=== PATIENT | female | born 1985 | race Two or more races ===

== ENCOUNTER 2024-08-26 23:37 | Emergency (ER) | payer OTHER ==
[~2024-08-26] VITALS: Ht 152.4 cm; Wt 70.6 kg
[2024-08-26 23:59] VITALS: BP 120/83; PULSE 80; RESP 24; TEMP 98.5; O2SAT 100
[2024-08-27] MEDS ORDERED: CYCL-837 PO (00:05)
--- NOTE | 2024-08-27 00:05 | ED.PDOC ---
Back pain HPI HPI Comments 38-YEAR-OLD FEMALE COMPLAINING OF INTERMITTENT HEADACHE FOR THE LAST 2-3 WEEKS. PATIENT REPORTS PAIN IS ON THE LEFT SIDE OF HER HEAD AND NECK, RADIATES DOWN HER LEFT ARM. NOTHING MAKES IT BETTER, MOVEMENT MAKES IT WORSE. PATIENT STATES PAIN IS MILD TODAY BUT SHE WAS CONCERNED BECAUSE SHE FELT NUMBNESS IN HER LEFT ARM AND ON THE LEFT SIDE OF HER FACE. Time Seen by MD: 23:52 Reviewed Notes: Nurses Notes Information Source: Patient Constitutional: denies: chills, diaphoresis, fatigue, fever, malaise, sweats, weakness, others EENTM: denies: blurred vision, double vision, ear bleeding, ear discharge, ear drainage, ear pain, ear ringing, eye pain, eye redness, hearing loss, mouth pain, mouth swelling, nasal discharge, nose bleeding, nose congestion, nose pain, photophobia, tearing, throat pain, throat swelling, voice changes, others Respiratory: denies: cough, hemoptysis, orthopnea, SOB at rest, shortness of breath, SOB with excertion, stridor, wheezing, others Cardiovascular: denies: chest pain, dizzy spells, diaphoresis, Dyspnea on exertion, edema, irregular heart beat, left arm pain, lightheadedness, palpitations, PND, syncope, others Gastrointestinal: denies: abdomen distended, abdominal pain, blood streaked bowels, constipated, diarrhea, dysphagia, difficulty swallowing, hematemesis, melena, nausea, poor appetite, poor fluid intake, rectal bleeding, rectal pain, vomiting, others Genitourinary: denies: abnormal vagina bleeding, burning, dyspareunia, dysuria, flank pain, frequency, hematuria, incontinence, pain, , vagina discharge, urgency, others Neurological: denies: dizziness, fainting, headache, left sided numbness, left sided weakness, numbness, paresthesia, pre-existing deficit, right sided numbness, right sided weakness, seizure, speech problems, tingling, tremors, weakness, others Musculoskeletal: denies: back pain, gout, joint pain, joint swelling, muscle pain, muscle stiffness, neck pain, others Integumetry: denies: bruises, change in color, change in hair/nails, dryness, laceration, lesions, lumps, rash, wounds, others Allergic/Immunocompromised: denies: Difficulty Healing, Frequent Infections, Hives, Itching, others Hematologic/Lymphatic: denies: anemia, blood clots, easy bleeding, easy bruising, swollen glands, others Endocrine: denies: excessive hunger, excessive sweating, excessive thirst, excessive urination, flushing, intolerance to cold, intolerance to heat, unexplained weight gain, unexplained weight loss, others Physical Exam General Appearance: No Apparent Distress, Normal HEENT: Normal ENT Inspection, Pharynx Normal, TMs Normal Neck: Full Range of Motion, Non-Tender, Normal, Normal Inspection Respiratory: Chest Non-Tender, Lungs Clear, No Accessory Muscle Use, No Respiratory Distress, Normal Breath Sounds Cardiovascular: No Edema, No JVD, No Murmur, No Gallop, Normal Peripheral Pulses, Regular Rate/Rhythm Breast Exam: Deferred Gastrointestinal: No Organomegaly, Non Tender, No Pulsatile Mass, Normal Bowel Sounds, Soft Genitalia: Deferred Pelvic: Deferred Rectal: Deferred Extremities: No calf tenderness, Normal capillary refill, Normal inspection, Normal range of motion, Non-tender, No pedal edema Musculoskeletal : Location: Left Extremity Location: Other (LEFT-SIDED TRAPEZIUS MUSCLE TENDER TO PALPATION) Apperance: Normal Neurologic: Alert, escalator attendant II-XII nml as Tested, No Motor Deficits, Normal Affect, Normal Mood, No Sensory Deficits Cerebellar Function: Normal Reflexes: Normal Skin: Dry, Normal Color, Warm Lymphatic: No Adenopathy Was a procedure done? Was a procedure done?: No Back Pain Differential Dx Differential Diagnosis: Other (TENSION HEADACHE, CLUSTER HEADACHE) X-Ray, Labs, Meds, VS Comment IMAGING: X-RAYS AND CT SCANS WERE REVIEWED AND INTERPRETED BY THIS PROVIDER, IMAGING SHOWS NO FRACTURES AND NO PATHOLOGICAL DISEASE. PENDING RADIOLOGY REVIEW. LABORATORY: LABS REVIEWED AND INTERPRETED BY THIS PROVIDER. NO SIGNIFICANT ABNORMALITIES NOTED. PATIENT HAS PRIOR MEDICAL VISITS REVIEWED. MED RECONCILIATION PERFORMED VITAL SIGNS REVIEWED Time of 1ST Reevaluation: 00:05 Reevaluation 1ST: Improved Patient Education/Counseling: Diagnosis, Treatment, Need For Follow Up (FOLLOW UP WITH THE PCP IN THE NEXT 2-4 DAYS.) Family Education/Counseling: Diagnosis Departure 1 Departure Time of Disposition: 00:04 Impression: Primary Impression: Torticollis Disposition: 01 HOME / SELF CARE / HOMELESS Condition: Fair e-Prescriptions Cyclobenzaprine Hcl (Cyclobenzaprine Hcl) 5 Mg Tab 1 TAB PO TID PRN, #30 TAB Prov: EMILIO VIVAS 08/27/24 Discharged With: Self Critical Care Note Critical Care Time?: No Stability Stability form required: No Heart Score Heart Score: Heart Score Response (Comments) Value History N/A 0 EKG N/A 0 Age N/A 0 Risk Factors N/A 0 Troponin N/A 0 Total 0 EMILIO VIVAS Aug 27, 2024 00:05
== END 2024-08-27 00:09 | disposition home or self-care (01) ==
LOC: ER 23:37
DX: M43.6 Torticollis (principal); Z79.899 Other long term (current) drug therapy
CPT/HCPCS: 82947; 82962

== ENCOUNTER 2024-11-27 12:59 | Emergency (ER) | payer OTHER ==
[~2024-11-27] VITALS: Ht 152.4 cm; Wt 70.6 kg
[~2024-11-27 12:59] MED LIST: CYCL-837 PO
--- NOTE | 2024-11-27 13:25 | ED.PDOC ---
History of Present Illness HPI Comments A 39 YEAR OLD FEMALE PRESENTS TO THE ED WITH COMPLAINT OF HIGH BLOOD PRESSURE AND HEADACHE. PATIENT STATES SHE HAS BEEN EXPERIENCING HIGH BLOOD PRESSURE OFF AND ON FOR THE PAST 2 MONTHS AND NOTICES WAS HIGH AGAIN TODAY. PATIENT REPORTS SHE BEGAN EXPERIENCE A HEADACHE AND LIGHTHEADEDNESS DUE TO HER HIGH BLOOD PRESSURE. PATIENT NOTES THAT SHE WAS DIAGNOSED BY HER PRIMARY CARE PHYSICIAN WITH HYPERTENSION, BUT DECLINED TO TAKE MEDICATION AT THIS TIME SHE OPTED FOR AT-HOME MANAGEMENT OF HER BLOOD PRESSURE INSTEAD OF MEDICATION. PATIENT DENIES HAS NOT CHANGES, SLURRED SPEECH, ONE-SIDED WEAKNESS, FACIAL DROOP, FEVER, CHILLS, SHORTNESS OF BREATH, CHEST PAIN, ABDOMINAL PAIN, NAUSEA, VOMITING, OR OTHER COMPLAINTS. NO OTHER SYMPTOMS OR MODIFYING FACTORS AT THIS TIME. PATIENT IS ALERT, ORIENTED X 4, AND HAS STEADY GAIT. Chief Complaint: High Blood Pressure Time Seen by MD: 13:06 Reviewed Notes: Nurses Notes, Medications, Allergies Allergies: Coded Allergies: Amoxicillin (Verified Allergy, Unknown, 08/27/24) Cephalexin (Verified Allergy, Unknown, 11/27/24) Ciprofloxacin (Verified Allergy, Unknown, 11/27/24) Penicillins (Verified Allergy, Unknown, 11/27/24) Home Meds Active Scripts Cyclobenzaprine Hcl (Cyclobenzaprine Hcl) 5 Mg Tab, 1 TAB PO TID PRN, #30 TAB Prov:EMILIO VIVAS 08/27/24 Information Source: Patient Mode of Arrival: Ambulatory Severity: Moderate Timing: Days Duration: Since onset, Days Prehospital treatment: None Medication Refill: For: Other (HIGH BLOOD PRESSURE AND HEADACHE) Past Medical History PAST MEDICAL HISTORY: HTN Surgical History: Denies all surgeries SILK TRIMMER History: Denies all SILK TRIMMER Hx, No Pertinent SILK TRIMMER History Family History Family History: Reviewed,noncontributory to illness Social History Smoker: Non-Smoker Alcohol: Denies ETOH Use Drugs: Denies Drug Use Lives In: Home Constitutional: denies: chills, diaphoresis, fatigue, fever, malaise, sweats, weakness, others EENTM: denies: blurred vision, double vision, ear bleeding, ear discharge, ear drainage, ear pain, ear ringing, eye pain, eye redness, hearing loss, mouth pain, mouth swelling, nasal discharge, nose bleeding, nose congestion, nose pain, photophobia, tearing, throat pain, throat swelling, voice changes, others Respiratory: denies: cough, hemoptysis, orthopnea, SOB at rest, shortness of breath, SOB with excertion, stridor, wheezing, others Cardiovascular: reports: others (HYPERTENSION); denies: chest pain, dizzy spells, diaphoresis, Dyspnea on exertion, edema, irregular heart beat, left arm pain, lightheadedness, palpitations, PND, syncope Gastrointestinal: denies: abdomen distended, abdominal pain, blood streaked bowels, constipated, diarrhea, dysphagia, difficulty swallowing, hematemesis, melena, nausea, poor appetite, poor fluid intake, rectal bleeding, rectal pain, vomiting, others Genitourinary: denies: abnormal vagina bleeding, burning, dyspareunia, dysuria, flank pain, frequency, hematuria, incontinence, pain, , vagina discharge, urgency, others Neurological: reports: dizziness, headache; denies: fainting, left sided numbness, left sided weakness, numbness, paresthesia, pre-existing deficit, right sided numbness, right sided weakness, seizure, speech problems, tingling, tremors, weakness, others Musculoskeletal: denies: back pain, gout, joint pain, joint swelling, muscle pain, muscle stiffness, neck pain, others Integumetry: denies: bruises, change in color, change in hair/nails, dryness, laceration, lesions, lumps, rash, wounds, others Allergic/Immunocompromised: denies: Difficulty Healing, Frequent Infections, Hives, Itching, others Hematologic/Lymphatic: denies: anemia, blood clots, easy bleeding, easy bruising, swollen glands, others Endocrine: denies: excessive hunger, excessive sweating, excessive thirst, excessive urination, flushing, intolerance to cold, intolerance to heat, unexplained weight gain, unexplained weight loss, others Psychiatric: reports: anxiety; denies: bipolar disorder, depression, hopeless, panic disorder, schizophrenia, sleepless, suicidal, others All Other Systems: Reviewed and Negative Physical Exam General Appearance: No Apparent Distress, Normal, Other (ANXIOUS ) HEENT: Normal ENT Inspection, PERRL/EOMI, Pharynx Normal, TMs Normal Neck: Full Range of Motion, Non-Tender, Normal, Normal Inspection Respiratory: Chest Non-Tender, Lungs Clear, No Accessory Muscle Use, No Respiratory Distress, Normal Breath Sounds Cardiovascular: No Edema, No JVD, No Murmur, No Gallop, Normal Peripheral Pulses, Regular Rate/Rhythm Breast Exam: Deferred Gastrointestinal: No Organomegaly, Non Tender, No Pulsatile Mass, Normal Bowel Sounds, Soft Genitalia: Deferred Pelvic: Deferred Rectal: Deferred Extremities: No calf tenderness, Normal capillary refill, Normal inspection, Normal range of motion, Non-tender, No pedal edema Musculoskeletal : Apperance: Normal Neurologic: Alert, air hammer operator II-XII nml as Tested, No Motor Deficits, Normal Affect, Normal Mood, No Sensory Deficits Cerebellar Function: Normal Reflexes: Normal Skin: Dry, Normal Color, Warm Lymphatic: No Adenopathy Was a procedure done? Was a procedure done?: No Differential Dx Considerations may include: HYPERTENSION, UNCONTROLLED HYPERTENSION, WELL CHECK TENSION HEADACHE, MIGRAINE HEADACHE, BRAIN MASS, BRAIN BLEED, ANXIETY REACTION, HYPERVENTILATION SYNDROME, UTI, ACUTE CYSTITIS, DEHYDRATION, ELECTROLYTE IMBALANCE, HYPOMAGNESEMIA X-Ray, Labs, Meds, VS Vital Signs Date Time Temp Pulse Resp B/P (MAP) Pulse Ox O2 Delivery O2 Flow Rate FiO2 11/27/24 14:41 99 Room Air* 0 21 11/27/24 14:37 98.1 82 17 120/75 (90) 97 98.1 11/27/24 13:01 98.2 94 16 134/77 98 98.2 Lab Test 11/27/24 13:35 11/27/24 13:31 Range/Units White Blood Count 6.4 4.4-10.8 10^3/uL Red Blood Count 4.98 4.0-5.20 10^6/uL Hemoglobin 15.5 12.2-16.2 g/dL Hematocrit 45.6 36.0-46.0 % Mean Corpuscular Volume 91.6 80.0-100.0 fL Mean Corpuscular Hemoglobin 31.2 28.0-32.0 pg Mean Corpuscular Hemoglobin Concent 34.0 32.0-36.0 g/dL Red Cell Distribution Width 12.6 11.8-14.3 % Platelet Count 250 140-450 10^3/uL Mean Platelet Volume 8.2 6.9-10.8 fL Neutrophils (%) (Auto) 65.0 37.0-80.0 % Lymphocytes (%) (Auto) 25.8 10.0-50.0 % Monocytes (%) (Auto) 7.6 0.0-12.0 % Eosinophils (%) (Auto) 0.9 0.0-7.0 % Basophils (%) (Auto) 0.7 0.0-2.0 % Neutrophils # (Auto) 4.2 1.6-8.6 10 ^3/uL Lymphocytes # (Auto) 1.7 0.4-5.4 10 ^3/uL Monocytes # (Auto) 0.5 0-1.3 10 ^3/uL Eosinophils # (Auto) 0.1 0-0.8 10 ^3/uL Basophils # (Auto) 0 0-0.2 10 ^3/uL Nucleated Red Blood Cells 0.0 % Sodium Level 139 136-145 mmol/L Potassium Level 4.3 3.5-5.1 mmol/L Chloride Level 105 98-107 mmol/L Carbon Dioxide Level 25 20-31 mmol/L Anion Gap 9 5-15 Blood Urea Nitrogen 14 9-23 mg/dL Creatinine 0.87 0.550-1.02 mg/dL Glomerular Filtration Rate Calc 87 >90 mL/min BUN/Creatinine Ratio 16.1 10.0-20.0 Serum Glucose 97 74-106 mg/dL Calcium Level 9.5 8.7-10.4 mg/dL Magnesium Level 2.1 1.6-2.6 mg/dL Troponin I High Sensitivity 3 L </=34 ng/L Urine Color Colorless Yellow Urine Clarity Clear Clear Urine pH 7.0 5.0-9.0 Urine Specific [place] 1.002 1.001-1.035 Urine Protein Trace H Negative Urine Ketones Negative Negative Urine Blood 3+ H Negative /uL Urine Nitrite Negative Negative Urine Bilirubin Negative Negative Urine Urobilinogen Normal Negative mg/dL Urine Leukocyte Esterase Trace Negative /uL Urine RBC 2 0 - 4 /hpf Urine Microscopic WBC 1 0-5 /HPF Urine Squamous Epithelial Cells Few <5 /hpf Urine Bacteria Few H None Seen /hpf Urine Glucose Normal Normal mg/dL CLINICAL HISTORY: HTN AND HEADACHE TECHNIQUE: Helical scanning was performed of the head from the skull base to the vertex. Multiplanar reconstructions were performed. This exam was performed according to our departmental dose optimization program. Up-to-date CT equipment and radiation dose reduction techniques are utilized as appropriate. CTDI 52.9 DLP 829 COMPARISON: None FINDINGS: There is no evidence for acute intracranial hemorrhage, acute ischemic changes, mass, mass effect, or extra-axial fluid collection. There is no hydrocephalus or midline shift. There is no effacement of the cerebral sulci and basal subarachnoid cisterns. The burrell-white matter differentiation is well maintained. The imaged paranasal sinuses are clear. IMPRESSION: NO ACUTE INTRACRANIAL ABNORMALITY SEEN. ATED BY: CHELSY MANJARREZ MD DICTATED DATE/TIME: 11/27/24 134 SIGNED BY: CHELSY MANJARREZ MD SIGNED DATE/TIME: 11/27/24 134 CC: X-Ray, Labs, Meds, VS Comment EXTERNAL MEDICAL RECORDS REVIEWED: [NONE] INDEPENDENT HISTORIANS: [NONE] SOCIAL DETERMINANTS OF HEALTH: [NONE] LABS ORDERED: CBC, BMP, UA, MAGNESIUM, TROPONIN REVIEWED AND INTERPRETED RESULTS: BLOOD 3+ IMAGING ORDERED: CT BRAIN TREATMENTS ORDERED: NONE PROCEDURES PERFORMED: NONE CRITICAL CARE TIME: NONE I HAVE DISCUSSED THE PATIENT WITH THE ATTENDING PHYSICIAN DR. CASEY AND HE AGREES WITH THE PATIENT'S PLAN OF CARE AND DISPOSITION. BASED ON HISTORY OF PRESENT ILLNESS, AND PHYSICAL EXAM, PATIENT WILL BE DISCHARGED HOME. SHARED DECISION MAKING: DISCUSSED WITH PATIENT THAT THEIR WORKUP WAS NORMAL. PATIENT INSTRUCTED TO FOLLOW UP WITH PRIMARY CARE PROVIDER IN 1-2 DAYS FOR RE- EVALUATION OF SYMPTOMS. PATIENT VERBALIZES UNDERSTANDING TO RETURN TO ED FOR NEW OR WORSENING SYMPTOMS OR IF FOLLOW UP WITH PCP CANNOT BE OBTAINED. PATIENT FEELS COMFORTABLE GOING HOME AT THIS TIME. ALL QUESTIONS ADDRESSED AT TIME OF DISCHARGE Images Reviewed?: Images reviewed and evaluated by me Time of 1ST Reevaluation: 14:43 Reevaluation 1ST: Improved Patient Education/Counseling: Diagnosis, Treatment, Need For Follow Up Family Education/Counseling: Diagnosis, Treatment, Need For Follow Up Medical Screening: No EMC Exist At This Time SEPSIS Sepsis Screen Date sepsis recognized/suspect: Nov 27, 2024 Time Sepsis recognized/suspect: 1306 Recent Procedure: No On Antibiotic Therapy: No Respiratory Rate >20: No Heart Rate >90: No Temp<36 C (96.8 F) or >38.3 C: No SBP <90 or MAP <65 mmHG: No New Acute Mental Status Change: No Is the patient on CPAP, BIPAP,: No Physician Orders Head Without Contrast (11/27/24 13:19) Vital Signs Date Time Temp Pulse Resp B/P (MAP) Pulse Ox O2 Delivery O2 Flow Rate FiO2 11/27/24 14:41 99 Room Air* 0 21 11/27/24 14:37 98.1 82 17 120/75 (90) 97 98.1 11/27/24 13:01 98.2 94 16 134/77 98 98.2 Laboratory Tests Test 11/27/24 13:35 White Blood Count 6.4 10^3/uL (4.4-10.8) Departure 1 Departure Time of Disposition: 14:43 Impression: Primary Impression: Tension headache Additional Impression: History of hypertension Disposition: 01 HOME / SELF CARE / HOMELESS Condition: Stable Additional Instructions: FOLLOW-UP WITH PCP IN 1 TO 2 DAYS. TAKE MEDICATIONS PRESCRIBED. RETURN TO ED FOR ANY NEW OR WORSENING SYMPTOMS. Discharged With: Self Critical Care Note Critical Care Time?: No Stability Stability form required: No I personally scribed for RANDY LEIVA ([email or web address]) on 11/27/24 at 13:25. Elec tronically submitted by Edmundo Cai ([facility]). I personally scribed for RANDY LEIVA ([email or web address]) on 11/27/24 at 13:51. Elect ronically submitted by Edmundo Cai ([employer]). I personally scribed for RANDY LEIVA ([email or web address]) on 11/27/24 at 14:24. Electr onically submitted by Edmundo Cai ([employer]). RANDY LEIVA Nov 27, 2024 13:25
--- NOTE | 2024-11-27 13:47 | DVH ---
CLINICAL HISTORY: HTN AND HEADACHE TECHNIQUE: Helical scanning was performed of the head from the skull base to the vertex. Multiplanar reconstructions were performed. This exam was performed according to our departmental dose optimizat ion program. Up-to-date CT equipment and radiation dose reduction techniques are utilized as appropri ate. CTDI 52.9 DLP 829 COMPARISON: None FINDINGS: There is no evidence for acute intracranial hemorrhage, acute ischemic changes, mass, mass effect, or extra-axial fluid collection. There is no hydrocephalus or midline shift. There is no effacement of the cerebral sulci and basal subarachnoid cisterns. The burrell-white matter differentiation is well zaria ntained. The imaged paranasal sinuses are clear. IMPRESSION: NO ACUTE INTRACRANIAL ABNORMALITY SEEN.
[2024-11-27 13:51] LABS: Urine Protein, UAD TRACE (Negative)
[2024-11-27 13:55] LABS: Hematocrit 45.6 % (36.0-46.0); Hemoglobin 15.5 g/dL (12.2-16.2); Mean Corpuscular Hemoglobin 31.2 pg (28.0-32.0); Mean Corpuscular Volume 91.6 fL (80.0-100.0); Nucleated Red Blood Cells % 0.0 %
[2024-11-27 14:02] LABS: Anion Gap 9 (5-15); Carbon Dioxide 25 mmol/L (20-31); Chloride 105 mmol/L (98-107); Potassium 4.3 mmol/L (3.5-5.1); Sodium 139 mmol/L (136-145)
[2024-11-27 14:03] LABS: Calcium 9.5 mg/dL (8.7-10.4)
[2024-11-27 14:08] LABS: BUN/Creatinine Ratio 16.1 (10.0-20.0); Blood Urea Nitrogen 14 mg/dL (9-23); Glucose 97 mg/dL (74-106); Magnesium 2.1 mg/dL (1.6-2.6)
[2024-11-27 14:37] VITALS: BP 120/75; PULSE 82; RESP 17; TEMP 98.1
[2024-11-27 14:41] VITALS: O2SAT 99
== END 2024-11-27 14:42 | disposition home or self-care (01) ==
LOC: ER 12:59
DX: G44.209 Tension-type headache, unspecified, not intractable (principal); I10 Essential (primary) hypertension; Z88.1 Allergy status to other antibiotic agents; Z88.0 Allergy status to penicillin
CPT/HCPCS: 36415; 70450; 80048; 81001; 83735; 84484; 85025

== ENCOUNTER 2024-12-07 19:33 | Emergency (ER) | payer OTHER ==
[~2024-12-07] VITALS: Ht 152.4 cm; Wt 70.3 kg
[2024-12-07 20:30] VITALS: BP 126/94; PULSE 78; RESP 16; TEMP 98.3; O2SAT 98
[2024-12-07] MEDS ORDERED: DIPH25CA66 PO (22:32)
--- NOTE | 2024-12-07 22:34 | ED.PDOC ---
HPI Allergic reaction HPI Comments Patient is a obese 39-year-old female who arrives the ED today for evaluation of an allergic reaction that began this morning has continued throughout the day. Patient is unaware of what has caused her condition, the patient stated she had a talya rash to her face, neck, chest, back and gluteal region. Patient states she recently was tested in july have lupus. Patient denies any fever nausea or vomiting. Vital signs were stable. Chief Complaint: Allergic Reaction Time Seen by MD: 19:55 Reviewed Notes: Nurses Notes Allergies: Coded Allergies: Amoxicillin (Verified Allergy, Unknown, 08/27/24) Cephalexin (Verified Allergy, Unknown, 11/27/24) Ciprofloxacin (Verified Allergy, Unknown, 11/27/24) Penicillins (Verified Allergy, Unknown, 11/27/24) Home Meds Active Scripts Cyclobenzaprine Hcl (Cyclobenzaprine Hcl) 5 Mg Tab, 1 TAB PO TID PRN, #30 TAB Prov:EMILIO VIVAS 08/27/24 Information Source: Patient Mode of Arrival: Ambulatory Severity: Moderate Rash: Moderate SOB: None Difficulty swallowing: None Pruritus: Mild Timing: Hours Duration: Since onset Prehospital treatment: None Location: Abdomen, Arm, Buttock, Chest, Extremities, Face Exposed to: Unknown History of: None Modyifying Factors: None Associated Sign and Symptoms: None Past Medical History PAST MEDICAL HISTORY: HTN Surgical History: Denies all surgeries 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, 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 History Family History Family History: Reviewed,noncontributory to illness Social History Smoker: Non-Smoker Alcohol: Denies ETOH Use Drugs: Denies Drug Use Lives In: Home Constitutional: denies: chills, diaphoresis, fatigue, fever, malaise, sweats, weakness, others EENTM: denies: blurred vision, double vision, ear bleeding, ear discharge, ear drainage, ear pain, ear ringing, eye pain, eye redness, hearing loss, mouth pain, mouth swelling, nasal discharge, nose bleeding, nose congestion, nose pain, photophobia, tearing, throat pain, throat swelling, voice changes, others Respiratory: denies: cough, hemoptysis, orthopnea, SOB at rest, shortness of breath, SOB with excertion, stridor, wheezing, others Cardiovascular: denies: chest pain, dizzy spells, diaphoresis, Dyspnea on exertion, edema, irregular heart beat, left arm pain, lightheadedness, palpitations, PND, syncope, others Gastrointestinal: denies: abdomen distended, abdominal pain, blood streaked bowels, constipated, diarrhea, dysphagia, difficulty swallowing, hematemesis, melena, nausea, poor appetite, poor fluid intake, rectal bleeding, rectal pain, vomiting, others Genitourinary: denies: abnormal vagina bleeding, burning, dyspareunia, dysuria, flank pain, frequency, hematuria, incontinence, pain, , vagina discharge, urgency, others Neurological: denies: dizziness, fainting, headache, left sided numbness, left sided weakness, numbness, paresthesia, pre-existing deficit, right sided numbness, right sided weakness, seizure, speech problems, tingling, tremors, weakness, others Musculoskeletal: denies: back pain, gout, joint pain, joint swelling, muscle pain, muscle stiffness, neck pain, others Integumetry: reports: rash (Sandpaper like); denies: bruises, change in color, change in hair/nails, dryness, laceration, lesions, lumps, wounds, others Allergic/Immunocompromised: denies: Difficulty Healing, Frequent Infections, Hives, Itching, others Hematologic/Lymphatic: denies: anemia, blood clots, easy bleeding, easy bruising, swollen glands, others Endocrine: denies: excessive hunger, excessive sweating, excessive thirst, excessive urination, flushing, intolerance to cold, intolerance to heat, unexplained weight gain, unexplained weight loss, others Psychiatric: denies: anxiety, bipolar disorder, depression, hopeless, panic disorder, schizophrenia, sleepless, suicidal, others Physical Exam General Appearance: Mild Distress (Moderate distress due to rash concerns.), Obese HEENT: Normal ENT Inspection, Pharynx Normal, TMs Normal, Other (No airway involvement.) Neck: Full Range of Motion, Non-Tender, Normal, Normal Inspection Respiratory: Chest Non-Tender, Lungs Clear, No Accessory Muscle Use, No Respiratory Distress, Normal Breath Sounds Cardiovascular: No Edema, No JVD, No Murmur, No Gallop, Normal Peripheral Pulses, Regular Rate/Rhythm Breast Exam: Deferred Gastrointestinal: No Organomegaly, Non Tender, No Pulsatile Mass, Normal Bowel Sounds, Soft Genitalia: Deferred Pelvic: Deferred Rectal: Deferred Extremities: Non-tender, No pedal edema Neurologic: Alert Cerebellar Function: NOT DONE Reflexes: NOT DONE Skin: Rash (Patient displays a mild talya sandpaper like rash to her face, chest, arms, back and gluteal region. No signs of infection.) Lymphatic: No Adenopathy Was a procedure done? Was a procedure done?: No Differential diagnosis (all) Differential Diagnosis: Contact Dermatitis, Drug Reaction, Urticaria, Other (Environmental allergy, food allergy) X-Ray, Labs, Meds, VS Vital Signs Date Time Temp Pulse Resp B/P (MAP) Pulse Ox O2 Delivery O2 Flow Rate FiO2 12/07/24 20:30 78 16 98 Room Air* 0 21 12/07/24 20:30 98.3 78 16 126/94 (105) 98 98.3 12/07/24 19:42 97.4 89 16 140/86 98 97.4 Current Medications Medications (Trade) Dose Ordered Sig/Edelmira Route Start Time Stop Time Status Last Admin Dexamethasone Sodium Phosphate (Decadron Injection) 10 mg ONCE ONCE IM 12/07/24 20:30 12/07/24 20:31 DC 12/07/24 21:12 Diphenhydramine HCl (Benadryl Capsule) 50 mg ONCE ONCE PO 12/07/24 20:30 12/07/24 20:31 DC 12/07/24 21:11 X-Ray, Labs, Meds, VS Comment Advised patient that is we can not determine the exact offending agent. Patient responded well to medication dispensed. Advised patient to continue follow up with the primary care provider for discussions related to possible lupus diagnosis as well as discussions related to today's visit. Patient may require an gas plant specialist referral. Time of 1ST Reevaluation: 22:31 Reevaluation 1ST: Improved Consultation: PCP Patient Education/Counseling: Diagnosis, Treatment Family Education/Counseling: Diagnosis, Treatment SEPSIS Sepsis Screen Date sepsis recognized/suspect: Dec 07, 2024 Time Sepsis recognized/suspect: 2029 Recent Procedure: No On Antibiotic Therapy: No Respiratory Rate >20: No Heart Rate >90: No Temp<36 C (96.8 F) or >38.3 C: No SBP <90 or MAP <65 mmHG: No New Acute Mental Status Change: No Is the patient on CPAP, BIPAP,: No Vital Signs Date Time Temp Pulse Resp B/P (MAP) Pulse Ox O2 Delivery O2 Flow Rate FiO2 12/07/24 20:30 78 16 98 Room Air* 0 21 12/07/24 20:30 98.3 78 16 126/94 (105) 98 98.3 12/07/24 19:42 97.4 89 16 140/86 98 97.4 Medications Medications Dose Ordered Sig/Edelmira Route Start Time Stop Time Status Last Admin Dose Admin Dexamethasone Sodium Phosphate 10 mg ONCE ONCE IM 12/07/24 20:30 12/07/24 20:31 DC 12/07/24 21:12 Diphenhydramine HCl 50 mg ONCE ONCE PO 12/07/24 20:30 12/07/24 20:31 DC 12/07/24 21:11 Departure 1 Departure Time of Disposition: 22:31 Impression: Primary Impression: Allergic rash present on examination Disposition: HOME / SELF CARE / HOMELESS Condition: Stable Additional Instructions: Advised patient follow up with the primary care provider for discussions related to today's visit as well as continued evaluation of possible lupus diagnosis. Patient may benefit from an gas plant specialist referral. e-Prescriptions Diphenhydramine Hcl (Benadryl Allergy) 25 Mg Cap 1 CAP PO Q8HP PRN, #30 CAP 0 Refills Prov: JAYY PHAM PAC 12/07/24 Discharged With: Self, Friend Critical Care Note Critical Care Time?: No Stability Stability form required: No Heart Score Heart Score: Heart Score Response (Comments) Value History N/A 0 EKG N/A 0 Age N/A 0 Risk Factors N/A 0 Troponin N/A 0 Total 0 JAYY PHAM PAC Dec 07, 2024 22:34
[2024-12-08] MEDS ORDERED: HYDR-4924 PO (13:17)
[2024-12-08] MEDS ORDERED: FAMO20TA10 PO (13:17)
[2024-12-08] MEDS ORDERED: PRED20TA2 PO (13:17)
[2024-12-09] MEDS ORDERED: DIPH25CA51 PO (01:28)
[2024-12-09] MEDS ORDERED: FAMO20TA10 PO (01:28)
== END 2024-12-08 00:21 | disposition home or self-care (01) ==
LOC: ER 19:33
DX: T78.40XA Allergy, unspecified, initial encounter (principal); I10 Essential (primary) hypertension; E66.9 Obesity, unspecified; Z68.30 Body mass index [BMI] 30.0-30.9, adult; Z79.899 Other long term (current) drug therapy; Z88.1 Allergy status to other antibiotic agents; Z88.0 Allergy status to penicillin; X58.XXXA Exposure to other specified factors, initial encounter
CPT/HCPCS: 96372; 99283; J1100

== ENCOUNTER 2024-12-08 11:31 | Emergency (ER) | payer OTHER ==
[~2024-12-08] VITALS: Ht 152.4 cm; Wt 69.3 kg
[~2024-12-08 11:31] MED LIST changes: +DIPH25CA66 PO
[2024-12-08 11:32] VITALS: BP 138/94; TEMP 98.4
[2024-12-08 13:14] VITALS: PULSE 105; RESP 20; O2SAT 100
[2024-12-08] MEDS ORDERED: HYDR-4924 PO (13:17)
[2024-12-08] MEDS ORDERED: FAMO20TA10 PO (13:17)
[2024-12-08] MEDS ORDERED: PRED20TA2 PO (13:17)
--- NOTE | 2024-12-08 13:17 | ED.PDOC ---
History of Present Illness(SKN HPI Comments 39-year-old female who presents to the ED after complaint of rash. Patient states the rash started yesterday and states it has spread from her extremities diffusely across her body. Patient states she came to the ED and she was given steroid shot and Benadryl and discharged. Patient states earlier this a.m. rash had come back and patient states that she took a Zyrtec but continued to have rash and came to the ED. patient in the ED otherwise states that she is being evaluated by primary care for this rash and states she recently had blood work and told by primary that she has lupus. Patient otherwise denies any other symptoms at this time. Chief Complaint: Rash Time Seen by MD: 11:44 History of Present Illness: Nurses Notes, Medications, Allergies Allergies: Coded Allergies: Amoxicillin (Verified Allergy, Unknown, 08/27/24) Cephalexin (Verified Allergy, Unknown, 11/27/24) Ciprofloxacin (Verified Allergy, Unknown, 11/27/24) Penicillins (Verified Allergy, Unknown, 11/27/24) Home Meds Active Scripts Hydroxyzine HCl (Hydroxyzine Hydrochloride) 25 Mg Tab, 25 MG PO Q8HP PRN for 5 Days, #15 TAB 0 Refills Prov:MARLENE SADLER QUALITY IMPROVEMENT COORDINATOR 12/08/24 Prednisone (Prednisone) 20 Mg Tab, 40 MG PO DAILY for 5 Days, #10 TAB 0 Refills Prov:MARLENE SADLER QUALITY IMPROVEMENT COORDINATOR 12/08/24 Reported Medications Famotidine (PEPCID TABLET) 20 Mg Tb, 2 TAB PO DAILY, TAB 12/09/24 Diphenhydramine Hcl (BENADRYL CAPSULE) 25 Mg Cp, 1 CAP PO Q8HP PRN for FOR ITCHING 12/09/24 Information Source: Patient Mode of Arrival: Ambulatory Past Medical History PAST MEDICAL HISTORY: HTN Surgical History: Denies all surgeries 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, No Pertinent WASHTUB WORKER History Family History Family History: Reviewed,noncontributory to illness Social History Smoker: Non-Smoker Alcohol: Denies ETOH Use Drugs: Denies Drug Use Lives In: Home Constitutional: denies: chills, diaphoresis, fatigue, fever, malaise, sweats, weakness, others EENTM: denies: blurred vision, double vision, ear bleeding, ear discharge, ear drainage, ear pain, ear ringing, eye pain, eye redness, hearing loss, mouth pain, mouth swelling, nasal discharge, nose bleeding, nose congestion, nose pain, photophobia, tearing, throat pain, throat swelling, voice changes, others Respiratory: denies: cough, hemoptysis, orthopnea, SOB at rest, shortness of breath, SOB with excertion, stridor, wheezing, others Cardiovascular: denies: chest pain, dizzy spells, diaphoresis, Dyspnea on exertion, edema, irregular heart beat, left arm pain, lightheadedness, palpitations, PND, syncope, others Gastrointestinal: denies: abdomen distended, abdominal pain, blood streaked bowels, constipated, diarrhea, dysphagia, difficulty swallowing, hematemesis, m malaika, nausea, poor appetite, poor fluid intake, rectal bleeding, rectal pain, vomiting, others Genitourinary: denies: abnormal vagina bleeding, burning, dyspareunia, dysuria, flank pain, frequency, hematuria, incontinence, pain, , vagina discharge, urgency, others Neurological: denies: dizziness, fainting, headache, left sided numbness, left sided weakness, numbness, paresthesia, pre-existing deficit, right sided numbness, right sided weakness, seizure, speech problems, tingling, tremors, weakness, others Musculoskeletal: denies: back pain, gout, joint pain, joint swelling, muscle pain, muscle stiffness, neck pain, others Integumetry: reports: others (Whole body hives); denies: bruises, change in color, change in hair/nails, dryness, laceration, lesions, lumps, rash, wounds Allergic/Immunocompromised: denies: Difficulty Healing, Frequent Infections, Hives, Itching, others Hematologic/Lymphatic: denies: anemia, blood clots, easy bleeding, easy bruising, swollen glands, others Endocrine: denies: excessive hunger, excessive sweating, excessive thirst, excessive urination, flushing, intolerance to cold, intolerance to heat, unexplained weight gain, unexplained weight loss, others Psychiatric: denies: anxiety, bipolar disorder, depression, hopeless, panic disorder, schizophrenia, sleepless, suicidal, others All Other Systems: Reviewed and Negative Physical Exam General Appearance: No Apparent Distress, Normal HEENT: Normal ENT Inspection, Pharynx Normal, TMs Normal Neck: Full Range of Motion, Non-Tender, Normal, Normal Inspection Respiratory: Chest Non-Tender, Lungs Clear, No Accessory Muscle Use, No Respiratory Distress, Normal Breath Sounds Cardiovascular: No Edema, No JVD, No Murmur, No Gallop, Normal Peripheral Pulses, Regular Rate/Rhythm Breast Exam: Deferred Gastrointestinal: No Organomegaly, Non Tender, No Pulsatile Mass, Normal Bowel Sounds, Soft Genitalia: Deferred Pelvic: Deferred Rectal: Deferred Extremities: No calf tenderness, Normal capillary refill, Normal inspection, Normal range of motion, Non-tender, No pedal edema Musculoskeletal : Apperance: Normal Neurologic: Alert, career coach II-XII nml as Tested, No Motor Deficits, Normal Affect, Normal Mood, No Sensory Deficits Cerebellar Function: Normal Reflexes: Normal Skin: Other (Urticaria) Lymphatic: No Adenopathy Was a procedure done? Was a procedure done?: No Differential Diagnosis (INTG) Differential Diagnosis: Atopic dermatitis, Contact Dermatitis, Drug Reaction, Urticaria, Other (Allergic reaction) X-Ray, Labs, Meds, VS Vital Signs Date Time Temp Pulse Resp B/P (MAP) Pulse Ox O2 Delivery O2 Flow Rate FiO2 12/08/24 13:14 105 12/08/24 13:14 105 20 100 12/08/24 11:32 98.4 117 16 138/94 100 98.4 X-Ray, Labs, Meds, VS Comment Patient arrives alert and oriented, ABC's intact, afebrile, vital signs stable, saturating well in room air Additional MDM Review of External, Non-ED records: External records reviewed. Discussion with independent historian (EMS, family) history obtained from the patient/parents (if applicable) at bedside Chronic conditions affecting care: None Social determinants of health affecting care: None Consideration of admission (observation or admission): I considered escalation of care to admission for this patient, however given the reassuring workup, the patient is safe for outpatient management. Time of 1ST Reevaluation: 13:14 Reevaluation 1ST: Improved Patient Education/Counseling: Diagnosis, Treatment Family Education/Counseling: Diagnosis, Treatment SEPSIS Sepsis Screen Date sepsis recognized/suspect: Dec 08, 2024 Time Sepsis recognized/suspect: 1135 Recent Procedure: No On Antibiotic Therapy: No Respiratory Rate >20: No Heart Rate >90: Yes Temp<36 C (96.8 F) or >38.3 C: No SBP <90 or MAP <65 mmHG: No New Acute Mental Status Change: No Is the patient on CPAP, BIPAP,: No Vital Signs Date Time Temp Pulse Resp B/P (MAP) Pulse Ox O2 Delivery O2 Flow Rate FiO2 12/08/24 13:14 105 12/08/24 13:14 105 20 100 12/08/24 11:32 98.4 117 16 138/94 100 98.4 Departure 1 Departure Time of Disposition: 13:14 Impression: Primary Impression: Allergic reaction Qualified Codes: T78.40XA - Allergy, unspecified, initial encounter Disposition: HOME / SELF CARE / HOMELESS Condition: Stable Additional Instructions: Discharge Note: Drink plenty of fluids. Follow up with your primary Dr. If your condition becomes worse call and follow up with your primary Dr. for ins tructions or return to the ER if needed. Thank you for visiting [facility]. e-Prescriptions Hydroxyzine HCl (Hydroxyzine Hydrochloride) 25 Mg Tab 25 MG PO Q8HP PRN for 5 Days, #15 TAB 0 Refills Prov: MARLENE SADLER NP 12/08/24 Prednisone (Prednisone) 20 Mg Tab 40 MG PO DAILY for 5 Days, #10 TAB 0 Refills Prov: MARLENE SADLER NP 12/08/24 Critical Care Note Critical Care Time?: No Stability Stability form required: No Heart Score Heart Score: Heart Score Response (Comments) Value History N/A 0 EKG N/A 0 Age N/A 0 Risk Factors N/A 0 Troponin N/A 0 Total 0 I personally scribed for MARLENE SADLER NP ([email or web address]) on 12/08/24 at 13:48. Electronically submitted by Lora HE). MARLENE SADLER NP Dec 08, 2024 13:17
[2024-12-09] MEDS ORDERED: FAMO20TA10 PO (01:28)
[2024-12-09] MEDS ORDERED: DIPH25CA51 PO (01:28)
== END 2024-12-08 13:23 | disposition home or self-care (01) ==
LOC: ER 11:35
DX: T78.40XA Allergy, unspecified, initial encounter (principal); I10 Essential (primary) hypertension; Z79.899 Other long term (current) drug therapy; Z88.1 Allergy status to other antibiotic agents; Z88.0 Allergy status to penicillin; Z79.52 Long term (current) use of systemic steroids; X58.XXXA Exposure to other specified factors, initial encounter

== ENCOUNTER 2024-12-08 20:27 | Inpatient (IN) | payer OTHER ==
[~2024-12-08] VITALS: Ht 152.4 cm; Wt 81.3 kg
[~2024-12-08 20:27] MED LIST changes: +FAMO20TA10 PO; +HYDR-4924 PO; +PRED20TA2 PO
[2024-12-08] MEDS: methylPREDNISolone SOD SUCC 125 MG/2 ML VL IM ONE (20:51)
[2024-12-08] MEDS: diphenhdrAMINE HCL 50 MG/1 ML VL IM ONE (20:53)
[2024-12-08 20:56] VITALS: RESP 19; O2SAT 98
--- NOTE | 2024-12-08 22:30 | ED.PDOC ---
History of Present Illness(SKN HPI Comments 39 year old female presents to ER with complaints of allergic reaction x 2 days. Patient with no known allergies reports she has been experiencing intermittent diffuse itchy body hives with associated "facial tightness" x 2 days. Patient currently complains of 5/10 frontal headache and states this is her 3rd ER visit for this complaint and has been taking her prescribed medications aside from her "prednisone" without relief. Patient presents to ER with mild diffuse urticaria noted to body, speaking in clear and complete sentences, in no distress with urticaria noted to bilateral arms/legs/chest/abdomen and face. Patient also states she was recently diagnosed with lupus. Denies fever, body aches, chills, throat tightness/difficulty swallowing, n/v, shortness of breath, chest pain, abdominal pain or any further symptoms/complaints Chief Complaint: Allergic Reaction Time Seen by MD: 20:36 Primary Care Provider: UNKNOWN History of Present Illness: Nurses Notes, Medications, Allergies Allergies: Coded Allergies: Amoxicillin (Verified Allergy, Unknown, 08/27/24) Cephalexin (Verified Allergy, Unknown, 11/27/24) Ciprofloxacin (Verified Allergy, Unknown, 11/27/24) Penicillins (Verified Allergy, Unknown, 11/27/24) Home Meds Active Scripts Hydroxyzine HCl (Hydroxyzine Hydrochloride) 25 Mg Tab, 25 MG PO Q8HP PRN for 5 Days, #15 TAB 0 Refills Prov:MARLENE SADLER COMPONENTS ENGINEER 12/08/24 Famotidine (PEPCID TABLET) 20 Mg Tb, 40 MG PO DAILY for 5 Days, #10 TAB 0 Refills Prov:MARLENE SADLER COMPONENTS ENGINEER 12/08/24 Prednisone (Prednisone) 20 Mg Tab, 40 MG PO DAILY for 5 Days, #10 TAB 0 Refills Prov:MARLENE SADLER COMPONENTS ENGINEER 12/08/24 Diphenhydramine Hcl (Benadryl Allergy) 25 Mg Cap, 1 CAP PO Q8HP PRN, #30 CAP 0 Refills Prov:JAYY PHAM PAC 12/07/24 Cyclobenzaprine Hcl (Cyclobenzaprine Hcl) 5 Mg Tab, 1 TAB PO TID PRN, #30 TAB Prov:EMILIO VIVAS FAST FOOD RESTAURANT MANAGER 08/27/24 Information Source: Patient Mode of Arrival: Ambulatory Past Medical History PAST MEDICAL HISTORY: HTN Past Medical History (Other): LUPUS Surgical History: Denies all surgeries AIRCRAFT SKIN BURNISHER History: No Pertinent AIRCRAFT SKIN BURNISHER History Family History Family History: Unknown Social History Smoker: Non-Smoker Alcohol: Denies ETOH Use Drugs: Denies Drug Use Lives In: Home Constitutional: denies: chills, diaphoresis, fatigue, fever, malaise, sweats, weakness, others EENTM: denies: blurred vision, double vision, ear bleeding, ear discharge, ear drainage, ear pain, ear ringing, eye pain, eye redness, hearing loss, mouth pain, mouth swelling, nasal discharge, nose bleeding, nose congestion, nose pain, photophobia, tearing, throat pain, throat swelling, voice changes, others Respiratory: denies: cough, hemoptysis, orthopnea, SOB at rest, shortness of breath, SOB with excertion, stridor, wheezing, others Cardiovascular: denies: chest pain, dizzy spells, diaphoresis, Dyspnea on exertion, edema, irregular heart beat, left arm pain, lightheadedness, palpitations, PND, syncope, others Gastrointestinal: denies: abdomen distended, abdominal pain, blood streaked bowels, constipated, diarrhea, dysphagia, difficulty swallowing, hematemesis, melena, nausea, poor appetite, poor fluid intake, rectal bleeding, rectal pain, vomiting, others Genitourinary: denies: abnormal vagina bleeding, burning, dyspareunia, dysuria, flank pain, frequency, hematuria, incontinence, pain, , vagina discharge, urgency, others Neurological: denies: dizziness, fainting, headache, left sided numbness, left sided weakness, numbness, paresthesia, pre-existing deficit, right sided numbness, right sided weakness, seizure, speech problems, tingling, tremors, weakness, others Musculoskeletal: denies: back pain, gout, joint pain, joint swelling, muscle pain, muscle stiffness, neck pain, others Integumetry: reports: others (As stated in HPI) Allergic/Immunocompromised: reports: others (As stated in HPI) Hematologic/Lymphatic: denies: anemia, blood clots, easy bleeding, easy bruising, swollen glands, others Endocrine: denies: excessive hunger, excessive sweating, excessive thirst, excessive urination, flushing, intolerance to cold, intolerance to heat, unexplained weight gain, unexplained weight loss, others Psychiatric: denies: anxiety, bipolar disorder, depression, hopeless, panic disorder, schizophrenia, sleepless, suicidal, others Physical Exam General Appearance: No Apparent Distress HEENT: Normal ENT Inspection, PERRL/EOMI, Pharynx Normal, TMs Normal Neck: Full Range of Motion, Non-Tender, Normal Respiratory: Chest Non-Tender, Lungs Clear, No Accessory Muscle Use, No Respiratory Distress, Normal Breath Sounds Cardiovascular: No Murmur, No Gallop, Regular Rate/Rhythm Breast Exam: Deferred Gastrointestinal: Non Tender, No Pulsatile Mass, Soft Genitalia: Deferred Pelvic: Deferred Rectal: Deferred Extremities: Normal capillary refill, Normal range of motion Neurologic: Alert, enterprise systems manager II-XII nml as Tested, No Motor Deficits, Normal Affect, Normal Mood, No Sensory Deficits Cerebellar Function: Normal Reflexes: Normal Skin: Dry, Warm, Other (urticaria noted to bilateral arms/legs/chest/abdomen and face. No angioedema/further skin changes noted) Peripheral Pulses: 2+ Radial (R), 2+ Radial (L), 2+ Brachial (R), 2+ Brachial (L) Lymphatic: No Adenopathy Was a procedure done? Was a procedure done?: No Sedation Sedation?: No Differential Diagnosis (INTG) Differential Diagnosis: Contact Dermatitis Differential Diagnosis: Other (Angioedema, respiratory distress) X-Ray, Labs, Meds, VS Vital Signs Date Time Temp Pulse Resp B/P (MAP) Pulse Ox O2 Delivery O2 Flow Rate FiO2 12/08/24 21:59 Room Air* 0 21 12/08/24 21:06 87 16 142/87 (105) 100 12/08/24 20:56 89 19 98 12/08/24 20:56 19 98 Room Air* 0 21 12/08/24 20:29 99.3 103 18 141/90 99 99.3 Lab Test 12/08/24 22:20 Range/Units White Blood Count 13.8 H 4.4-10.8 10^3/uL Red Blood Count 4.75 4.0-5.20 10^6/uL Hemoglobin 15.2 12.2-16.2 g/dL Hematocrit 43.6 36.0-46.0 % Mean Corpuscular Volume 91.9 80.0-100.0 fL Mean Corpuscular Hemoglobin 31.9 28.0-32.0 pg Mean Corpuscular Hemoglobin Concent 34.8 32.0-36.0 g/dL Red Cell Distribution Width 12.7 11.8-14.3 % Platelet Count 266 140-450 10^3/uL Mean Platelet Volume 8.5 6.9-10.8 fL Neutrophils (%) (Auto) 81.6 H 37.0-80.0 % Lymphocytes (%) (Auto) 11.5 10.0-50.0 % Monocytes (%) (Auto) 6.7 0.0-12.0 % Eosinophils (%) (Auto) 0.0 0.0-7.0 % Basophils (%) (Auto) 0.2 0.0-2.0 % Neutrophils # (Auto) 11.3 H 1.6-8.6 10 ^3/uL Lymphocytes # (Auto) 1.6 0.4-5.4 10 ^3/uL Monocytes # (Auto) 0.9 0-1.3 10 ^3/uL Eosinophils # (Auto) 0 0-0.8 10 ^3/uL Basophils # (Auto) 0 0-0.2 10 ^3/uL Nucleated Red Blood Cells 0.0 % Erythrocyte Sedimentation Rate 6 0-20 mm/hr Sodium Level 142 136-145 mmol/L Potassium Level 3.8 3.5-5.1 mmol/L Chloride Level 109 H 98-107 mmol/L Carbon Dioxide Level 21 20-31 mmol/L Anion Gap 12 5-15 Blood Urea Nitrogen 6 L 9-23 mg/dL Creatinine 0.77 0.550-1.02 mg/dL Glomerular Filtration Rate Calc 101 >90 mL/min BUN/Creatinine Ratio 7.8 L 10.0-20.0 Serum Glucose 137 H 74-106 mg/dL Calcium Level 9.6 8.7-10.4 mg/dL Total Bilirubin 0.6 0.2-1.0 mg/dL Aspartate Amino Transferase (AST) 21 13-40 U/L Alanine Aminotransferase (ALT) 27 7-40 U/L Alkaline Phosphatase 93 46-116 U/L Total Protein 7.9 5.7-8.2 g/dL Albumin 4.7 3.2-4.8 g/dL Current Medications Medications (Trade) Dose Ordered Sig/Edelmira Route Start Time Stop Time Status Last Admin Methylprednisolone Sodium Succinate (Solu Medrol) 125 mg ONCE ONCE IM 12/08/24 20:45 12/08/24 20:46 DC 12/08/24 20:51 Diphenhydramine HCl (Benadryl Injection) 25 mg ONCE ONCE IM 12/08/24 20:45 12/08/24 20:46 DC 12/08/24 20:53 CBC reviewed-WBC 13.8 CMP reviewed without any significant abnormalities ESR reviewed-normal Urinalysis ordered Urine ordered Solu-Medrol 125 mg IM ordered Benadryl 25 mg IM ordered This is patient's 3rd ER visit for similar complaints. Patient admitted to hosp italist for reoccurring urticaria and need for IV medications Time of 1ST Reevaluation: 22:04 Reevaluation 1ST: N/A Patient Education/Counseling: Diagnosis, Treatment, Prognosis, Need For Follow Up Family Education/Counseling: No Family Present SEPSIS Sepsis Screen Date sepsis recognized/suspect: Dec 08, 2024 Time Sepsis recognized/suspect: 2032 Recent Procedure: No On Antibiotic Therapy: No Respiratory Rate >20: No Heart Rate >90: No Temp<36 C (96.8 F) or >38.3 C: No SBP <90 or MAP <65 mmHG: No New Acute Mental Status Change: No Is the patient on CPAP, BIPAP,: No Physician Orders Heplock Iv (12/08/24 ) Vital Signs Date Time Temp Pulse Resp B/P (MAP) Pulse Ox O2 Delivery O2 Flow Rate FiO2 12/08/24 21:59 Room Air* 0 12/08/24 21:06 87 16 142/87 (105) 100 12/08/24 20:56 89 19 98 12/08/24 20:56 19 98 Room Air* 0 21 12/08/24 20:29 99.3 103 18 141/90 99 99.3 Laboratory Tests Test 12/08/24 22:20 White Blood Count 13.8 10^3/uL (4.4-10.8) H Medications Medications Dose Ordered Sig/Edelmira Route Start Time Stop Time Status Last Admin Dose Admin Diphenhydramine HCl 25 mg ONCE ONCE IM 12/08/24 20:45 12/08/24 20:46 DC 12/08/24 20:53 Methylprednisolone Sodium Succinate 125 mg ONCE ONCE IM 12/08/24 20:45 12/08/24 20:46 DC 12/08/24 20:51 Departure 1 Departure Time of Disposition: 22:30 Impression: Primary Impression: Allergic urticaria Disposition: ADMITTED INPATIENT Condition: Stable Critical Care Note Critical Care Time?: No Stability Stability form required: No Heart Score Heart Score: Heart Score Response (Comments) Value History N/A 0 EKG N/A 0 Age N/A 0 Risk Factors N/A 0 Troponin N/A 0 Total 0 GAY COBURN Dec 08, 2024 22:30
[2024-12-08 22:56] LABS: Hematocrit 43.6 % (36.0-46.0); Hemoglobin 15.2 g/dL (12.2-16.2); Mean Corpuscular Hemoglobin 31.9 pg (28.0-32.0); Mean Corpuscular Volume 91.9 fL (80.0-100.0); Nucleated Red Blood Cells % 0.0 %
[2024-12-08 23:18] LABS: Alanine Aminotransferase 27 U/L (7-40); Albumin 4.7 g/dL (3.2-4.8); Alkaline Phosphatase 93 U/L (46-116); Anion Gap 12 (5-15); BUN/Creatinine Ratio 7.8 (10.0-20.0); Bilirubin, Total 0.6 mg/dL (0.2-1.0); Calcium 9.6 mg/dL (8.7-10.4); Carbon Dioxide 21 mmol/L (20-31); Potassium 3.8 mmol/L (3.5-5.1); Sodium 142 mmol/L (136-145); Total Protein 7.9 g/dL (5.7-8.2)
[2024-12-08 23:24] LABS: Blood Urea Nitrogen 6 mg/dL (9-23); Chloride 109 mmol/L (98-107); Glucose 137 mg/dL (74-106)
[2024-12-09] VITALS (10 sets, daily range): BP systolic 88–121; BP diastolic 60–89; PULSE 79–102; RESP 16–20; TEMP 97.9–98.6; O2SAT 96–100
[2024-12-09] MEDS: FAMOTIDINE (10MG/ML) 2ML VL IV ONE
[2024-12-09] MEDS ORDERED: TEMAZEPAM 15 MG CAP PO PRN
[2024-12-09] MEDS ORDERED: ONDANSETRON HCL 4 MG/2 ML VIAL IV PRN
[2024-12-09] MEDS ORDERED: ACETAMINOPHEN 325 MG TAB PO PRN
[2024-12-09] MEDS: SODIUM CHLORIDE 0.9% 1,000 ML IV ONE (01:15)
[2024-12-09] MEDS ORDERED: FAMO20TA10 PO (01:28)
[2024-12-09] MEDS ORDERED: DIPH25CA51 PO (01:28)
--- NOTE | 2024-12-09 04:30 | DVHHP2 ---
History of Present Illness Reason for Visit: Allergic reaction History of Present Illness 39-year-old female presents for evaluation of allergic reaction. Patient presents with a two day history of developing hives throughout her body, swelling her face and hot flashes. She presents to the emergency department jay ramírez. Denies shortness or breath or difficulty swallowing. Patient reports recently being diagnosed with lupus. No other acute complaints reported Past Medical History Lupus Past Surgical History Denies Family History Noncontributory Smoke: No ALCOHOL: none Drugs: None Lives: with Family Review of Systems Review of Systems Review of systems are currently negative otherwise addressed in HPI. Allergies: Coded Allergies: Amoxicillin (Verified Allergy, Unknown, 08/27/24) Cephalexin (Verified Allergy, Unknown, 11/27/24) Ciprofloxacin (Verified Allergy, Unknown, 11/27/24) Penicillins (Verified Allergy, Unknown, 11/27/24) Medications Current Medications Medications Dose Ordered Sig/Edelmira Route Start Time Stop Time Status Last Admin Dose Admin Diphenhydramine HCl 50 mg Q6HP PRN PO 12/09/24 00:00 12/09/24 01:16 50 MG Famotidine 20 mg DAILY IV 12/09/24 10:00 Methylprednisolone Sodium Succinate 40 mg DAILY IV 12/09/24 10:00 Temazepam 15 mg QHSP PRN PO 12/09/24 00:00 Ondansetron HCl 4 mg Q4HP PRN IV 12/09/24 00:00 Acetaminophen 650 mg Q6HP PRN PO 12/09/24 00:00 Exam Vital Signs Vital Signs Date Time Temp Pulse Resp B/P (MAP) Pulse Ox O2 Delivery O2 Flow Rate FiO2 12/09/24 02:00 81 18 100 Room Air* 0 21 12/09/24 01:55 98.4 120/89 (99) 98.4 Exam Gen: 39-year-old female in mild distress. Skin: Warm, dry, normal color and texture, hives HEENT: Normocephalic atraumatic, mucous membranes moist and pink. Neck: Cervical and supraclavicular nodes normal without enlargement, trachea is midline, thyroid gland is normal without masses. Pulmonary: Clear to auscultation and percussion bilaterally. Cardiac: Regular rate and rhythm. No murmur Abdomen: Soft, nontender, nondistended, bowel sounds present all 4 quadrants, no guarding, no rigidity, no organomegaly. Extremities: No cyanosis, clubbing, no edema Neuro: Cranial nerves II through XII grossly intact, normal affect and speech, no focal motor deficits. Labs/Xrays Labs Test 12/08/24 22:20 Range/Units White Blood Count 13.8 H 4.4-10.8 10^3/uL Red Blood Count 4.75 4.0-5.20 10^6/uL Hemoglobin 15.2 12.2-16.2 g/dL Hematocrit 43.6 36.0-46.0 % Mean Corpuscular Volume 91.9 80.0-100.0 fL Mean Corpuscular Hemoglobin 31.9 28.0-32.0 pg Mean Corpuscular Hemoglobin Concent 34.8 32.0-36.0 g/dL Red Cell Distribution Width 12.7 11.8-14.3 % Platelet Count 266 140-450 10^3/uL Mean Platelet Volume 8.5 6.9-10.8 fL Neutrophils (%) (Auto) 81.6 H 37.0-80.0 % Lymphocytes (%) (Auto) 11.5 10.0-50.0 % Monocytes (%) (Auto) 6.7 0.0-12.0 % Eosinophils (%) (Auto) 0.0 0.0-7.0 % Basophils (%) (Auto) 0.2 0.0-2.0 % Neutrophils # (Auto) 11.3 H 1.6-8.6 10 ^3/uL Lymphocytes # (Auto) 1.6 0.4-5.4 10 ^3/uL Monocytes # (Auto) 0.9 0-1.3 10 ^3/uL Eosinophils # (Auto) 0 0-0.8 10 ^3/uL Basophils # (Auto) 0 0-0.2 10 ^3/uL Nucleated Red Blood Cells 0.0 % Erythrocyte Sedimentation Rate 6 0-20 mm/hr Sodium Level 142 136-145 mmol/L Potassium Level 3.8 3.5-5.1 mmol/L Chloride Level 109 H 98-107 mmol/L Carbon Dioxide Level 21 20-31 mmol/L Anion Gap 12 5-15 Blood Urea Nitrogen 6 L 9-23 mg/dL Creatinine 0.77 0.550-1.02 mg/dL Glomerular Filtration Rate Calc 101 >90 mL/min BUN/Creatinine Ratio 7.8 L 10.0-20.0 Serum Glucose 137 H 74-106 mg/dL Calcium Level 9.6 8.7-10.4 mg/dL Total Bilirubin 0.6 0.2-1.0 mg/dL Aspartate Amino Transferase (AST) 21 13-40 U/L Alanine Aminotransferase (ALT) 27 7-40 U/L Alkaline Phosphatase 93 46-116 U/L Total Protein 7.9 5.7-8.2 g/dL Albumin 4.7 3.2-4.8 g/dL SEPSIS Sepsis Screen Date sepsis recognized/suspect: Dec 08, 2024 Time Sepsis recognized/suspect: 2032 Recent Procedure: No On Antibiotic Therapy: No Respiratory Rate >20: No Heart Rate >90: No Temp<36 C (96.8 F) or >38.3 C: No SBP <90 or MAP <65 mmHG: No New Acute Mental Status Change: No Is the patient on CPAP, BIPAP,: No Physician Orders Heplock Iv (12/08/24 ) Test, Urine (12/08/24 23:48) Urinalysis (12/08/24 23:48) Diphenhdramine Capsule (Benadryl Capsule (12/09/24 00:00) Famotidine Injection (Pepcid Injection) (12/09/24 10:00) Sodium Chloride 0.9% (12/09/24 00:00) Methylprednisolone Sod Succ (Solu Medrol (12/09/24 10:00) Basic Metabolic Panel (12/09/24 04:00) Regular Diet (12/09/24 Breakfast) Admit (12/08/24 23:48) Temazepam (Restoril) (12/09/24 00:00) Ondansetron Hcl (Zofran) (12/09/24 00:00) Complete Blood Count (12/09/24 04:00) Condition: Stable (12/08/24 23:48) Acetaminophen Tablet (Tylenol Tablet) (12/09/24 00:00) Bedrest With Bathroom Privileg (12/08/24 23:48) Vital Signs Date Time Temp Pulse Resp B/P (MAP) Pulse Ox O2 Delivery O2 Flow Rate FiO2 12/09/24 02:00 81 18 100 Room Air* 0 21 12/09/24 01:55 98.4 81 18 120/89 (99) 100 98.4 12/09/24 01:45 98.2 81 18 121/81 (94) 100 98.2 12/09/24 01:00 98.2 81 18 121/81 (94) 100 98.2 12/08/24 21:59 Room Air* 0 21 12/08/24 21:06 87 16 142/87 (105) 100 12/08/24 20:56 89 19 98 12/08/24 20:56 19 98 Room Air* 0 21 12/08/24 20:29 99.3 103 18 141/90 99 99.3 Laboratory Tests Test 12/08/24 22:20 White Blood Count 13.8 10^3/uL (4.4-10.8) H Medications Medications Dose Ordered Sig/Edelmira Route Start Time Stop Time Status Last Admin Dose Admin Diphenhydramine HCl 25 mg ONCE ONCE IM 12/08/24 20:45 12/08/24 20:46 DC 12/08/24 20:53 25 MG Diphenhydramine HCl 50 mg Q6HP PRN PO 12/09/24 00:00 12/09/24 01:16 50 MG Methylprednisolone Sodium Succinate 125 mg ONCE ONCE IM 12/08/24 20:45 12/08/24 20:46 DC 12/08/24 20:51 125 MG Sodium Chloride 1,000 ml @ 100 mls/hr Q10H ONCE IV 12/09/24 00:00 12/09/24 09:59 12/09/24 01:15 100 MLS/HR Assessment/Plan Assessment/Plan Assessment Allergic reaction History of lupus Plan Admit the patient to [facility] to the hospitalist Methylprednisone/Benadryl /Pepcid/IV fluids Plan Continue treatment per orders. Plan discussed with: Patient My Orders Orders - ISAURA ALEJO AGACNP Procedure Category Date Status Time Test, Urine LAB 12/08/24 Logged 23:48 Urinalysis LAB 12/08/24 Logged 23:48 Diphenhdramine PHA 12/09/24 In Process Capsule (Benadryl 00:00 Famotidine Injection PHA 12/09/24 In Process (Pepcid Injection) 10:00 Sodium Chloride 0.9% PHA 12/09/24 In Process 00:00 Methylprednisolone PHA 10/7/25 In Process Sod Succ (Solu Medrol 10:00 Basic Metabolic Panel LAB 12/09/24 Logged 04:00 Regular Diet DIET 12/09/24 Transmitted Breakfast Admit ADMIT 12/08/24 Transmitted 23:48 Temazepam (Restoril) PHA 12/09/24 In Process 00:00 Ondansetron Hcl PHA 12/09/24 In Process (Zofran) 00:00 Complete Blood Count LAB 12/09/24 Logged 04:00 Condition: Stable RACHNA 12/08/24 In Process 23:48 Acetaminophen Tablet PHA 12/09/24 In Process (Tylenol Tablet) 00:00 Bedrest With Bathroom RACHNA 12/08/24 In Process Privileg 23:48 Date of Service: Dec 08, 2024 Billing Provider: ISAURA ALEJO Common Visit Codes: [id number] INP/OBS CARE (HIGH) ISAURA ALEJO Dec 09, 2024 04:30
[2024-12-09 07:13] LABS: Hematocrit 41.9 % (36.0-46.0); Hemoglobin 14.4 g/dL (12.2-16.2); Mean Corpuscular Hemoglobin 31.7 pg (28.0-32.0); Mean Corpuscular Volume 92.0 fL (80.0-100.0); Nucleated Red Blood Cells % 0.0 %
[2024-12-09 07:24] LABS: Potassium 4.6 mmol/L (3.5-5.1); Sodium 143 mmol/L (136-145)
[2024-12-09 07:25] LABS: Anion Gap 10 (5-15); Calcium 8.9 mg/dL (8.7-10.4)
[2024-12-09 07:30] LABS: BUN/Creatinine Ratio 8.8 (10.0-20.0)
[2024-12-09 07:39] LABS: Blood Urea Nitrogen 7 mg/dL (9-23); Carbon Dioxide 20 mmol/L (20-31); Chloride 113 mmol/L (98-107); Glucose 190 mg/dL (74-106)
[2024-12-09] MEDS: FAMOTIDINE (10MG/ML) 2ML VL IV SCH (10:00)
[2024-12-09] MEDS: methylPREDNISolone SOD SUCC 40 MG/ML VL IV SCH (10:53)
--- NOTE | 2024-12-09 17:56 | DVHPN2 ---
Subjective I am assuming the care from today onwards. 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 Medications Current Medications Medications Dose Ordered Sig/Edelmira Route Start Time Stop Time Status Last Admin Dose Admin Diphenhydramine HCl 50 mg Q6HP PRN PO 12/09/24 00:00 12/09/24 10:54 50 MG Famotidine 20 mg DAILY IV 12/09/24 10:00 Methylprednisolone Sodium Succinate 40 mg DAILY IV 12/09/24 10:00 12/09/24 10:53 40 MG Temazepam 15 mg QHSP PRN PO 12/09/24 00:00 Ondansetron HCl 4 mg Q4HP PRN IV 12/09/24 00:00 Acetaminophen 650 mg Q6HP PRN PO 12/09/24 00:00 Laboratory Results Laboratory Tests 12/09/24 06:03 Chemistry Test 12/08/24 22:20 12/09/24 06:03 Albumin 4.7 g/dL (3.2-4.8) Calcium Level 9.6 mg/dL (8.7-10.4) 8.9 mg/dL (8.7-10.4) Total Protein 7.9 g/dL (5.7-8.2) LFT Test 12/08/24 22:20 Alanine Aminotransferase (ALT) 27 U/L (7-40) Alkaline Phosphatase 93 U/L (46-116) Aspartate Amino Transferase (AST) 21 U/L (13-40) Total Bilirubin 0.6 mg/dL (0.2-1.0) Assessment/Plan Assessment/Plan 79-year-old female with a no significant past medical history with a previous history of positive CLARENCE presented to the hospital with a allergic rash 1. Allergic rash 2. Positive CLARENCE -continue steroids Benadryl p.r.n. rheumatology consultation Patient may need allergy and immunology as an outpatient. Plan discussed with: Patient My Orders Orders - ALEJANDRA VALLE MD Procedure Category Date Status Time * Rheumatology Consult CONS 12/09/24 Transmitted Date of Service: Dec 09, 2024 Billing Provider: ALEJANDRA VALLE MD Common Visit Codes: [id number] INP/OBS CARE(MOD) ALEJANDRA VALLE MD Dec 09, 2024 17:56
[2024-12-10] VITALS (7 sets, daily range): BP systolic 104–125; BP diastolic 68–81; PULSE 56–91; RESP 18–20; TEMP 98.2–99.1; O2SAT 97–100
[2024-12-10] MEDS: diphenhdrAMINE HCL 50 MG/1 ML VL IV ONE (03:28)
[2024-12-10] MEDS: methylPREDNISolone SOD SUCC 125 MG/2 ML VL IV ONE (03:28)
[2024-12-10 12:33] LABS: Urine Protein, UAD Negative (Negative)
--- NOTE | 2024-12-10 16:28 | DVHPN2 ---
Subjective Patient is still have allergic reaction, overnight she said her face was swollen. 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 Medications Current Medications Medications Dose Ordered Sig/Edelmira Route Start Time Stop Time Status Last Admin Dose Admin Diphenhydramine HCl 50 mg Q6HP PRN PO 12/09/24 00:00 12/10/24 11:48 50 MG Temazepam 15 mg QHSP PRN PO 12/09/24 00:00 Ondansetron HCl 4 mg Q4HP PRN IV 12/09/24 00:00 Acetaminophen 650 mg Q6HP PRN PO 12/09/24 00:00 Methylprednisolone Sodium Succinate 40 mg DAILY@1800 IV 12/10/24 18:00 Laboratory Results Laboratory Tests 12/09/24 06:03 Urinalysis Test 12/10/24 11:40 Urine Color Colorless (Yellow) Urine Clarity Clear (Clear) Urine pH 7.5 (5.0-9.0) Urine Specific [place] 1.006 (1.001-1.035) Urine Protein Negative (Negative) Urine Ketones Negative (Negative) Urine Blood Negative /uL (Negative) Urine Nitrite Negative (Negative) Urine Bilirubin Negative (Negative) Urine Urobilinogen Normal mg/dL (Negative) Urine Leukocyte Esterase Negative /uL (Negative) Urine RBC 1 /hpf (0 - 4) Urine Microscopic WBC 1 /HPF (0-5) Urine Squamous Epithelial Cells Few /hpf (<5) Urine Bacteria Few /hpf (None Seen) H Urine Glucose 3+ mg/dL (Normal) H Urine Test Negative (Negative) Assessment/Plan Assessment/Plan 79-year-old female with a no significant past medical history with a previous history of positive CLARENCE presented to the hospital with a allergic rash 1. Allergic rash 2. Positive CLARENCE -continue steroids Benadryl p.r.n. rheumatology consultation Patient may need to see specialist managers as an outpatient. Plan discussed with: Patient My Orders Orders - ALEJANDRA VALLE MD Procedure Category Date Status Time Methylprednisolone PHA 12/10/24 In Process Sod Succ (Solu Medrol 18:00 Date of Service: Dec 10, 2024 Billing Provider: ALEJANDRA VALLE MD Common Visit Codes: [id number] INP/OBS CARE(MOD) ALEJANDRA VALLE MD Dec 10, 2024 16:28
[2024-12-10] MEDS: methylPREDNISolone SOD SUCC 40 MG/ML VL IV SCH (18:00)
[2024-12-11] VITALS (7 sets, daily range): BP systolic 102–130; BP diastolic 65–75; PULSE 65–99; RESP 17–18; TEMP 97.6–98.4; O2SAT 97–100
[2024-12-11] MEDS ORDERED: PRED20TA2 PO (16:26)
[2024-12-11] MEDS ORDERED: PANT40TA2 PO (16:26)
--- NOTE | 2024-12-11 16:31 | DVHDS2 ---
Discharge Summary Date of Admission Dec 08, 2024 at 23:48 Date of Discharge: Dec 11, 2024 Labs/Diagnostic Data: Laboratory Results Test 12/10/24 11:40 12/09/24 06:03 12/08/24 22:20 Urine Color Colorless (Yellow) Urine Clarity Clear (Clear) Urine pH 7.5 (5.0-9.0) Urine Specific [place] 1.006 (1.001-1.035) Urine Protein Negative (Negative) Urine Ketones Negative (Negative) Urine Blood Negative /uL (Negative) Urine Nitrite Negative (Negative) Urine Bilirubin Negative (Negative) Urine Urobilinogen Normal mg/dL (Negative) Urine Leukocyte Esterase Negative /uL (Negative) Urine RBC 1 /hpf (0 - 4) Urine Microscopic WBC 1 /HPF (0-5) Urine Squamous Epithelial Cells Few /hpf (<5) Urine Bacteria Few /hpf (None Seen) Urine Glucose 3+ mg/dL (Normal) Urine Test Negative (Negative) White Blood Count 10.6 10^3/uL (4.4-10.8) Red Blood Count 4.55 10^6/uL (4.0-5.20) Hemoglobin 14.4 g/dL (12.2-16.2) Hematocrit 41.9 % (36.0-46.0) Mean Corpuscular Volume 92.0 fL (80.0-100.0) Mean Corpuscular Hemoglobin 31.7 pg (28.0-32.0) Mean Corpuscular Hemoglobin Concent 34.4 g/dL (32.0-36.0) Red Cell Distribution Width 12.7 % (11.8-14.3) Platelet Count 244 10^3/uL (140-450) Mean Platelet Volume 8.7 fL (6.9-10.8) Neutrophils (%) (Auto) 92.8 % (37.0-80.0) Lymphocytes (%) (Auto) 5.9 % (10.0-50.0) Monocytes (%) (Auto) 1.2 % (0.0-12.0) Eosinophils (%) (Auto) 0.0 % (0.0-7.0) Basophils (%) (Auto) 0.1 % (0.0-2.0) Neutrophils # (Auto) 9.8 10 ^3/uL (1.6-8.6) Lymphocytes # (Auto) 0.6 10 ^3/uL (0.4-5.4) Monocytes # (Auto) 0.1 10 ^3/uL (0-1.3) Eosinophils # (Auto) 0 10 ^3/uL (0-0.8) Basophils # (Auto) 0 10 ^3/uL (0-0.2) Nucleated Red Blood Cells 0.0 % Sodium Level 143 mmol/L (136-145) Potassium Level 4.6 mmol/L (3.5-5.1) Chloride Level 113 mmol/L (98-107) Carbon Dioxide Level 20 mmol/L (20-31) Anion Gap 10 (5-15) Blood Urea Nitrogen 7 mg/dL (9-23) Creatinine 0.80 mg/dL (0.550-1.02) Glomerular Filtration Rate Calc 96 mL/min (>90) BUN/Creatinine Ratio 8.8 (10.0-20.0) Serum Glucose 190 mg/dL (74-106) Calcium Level 8.9 mg/dL (8.7-10.4) Erythrocyte Sedimentation Rate 6 mm/hr (0-20) Total Bilirubin 0.6 mg/dL (0.2-1.0) Aspartate Amino Transferase (AST) 21 U/L (13-40) Alanine Aminotransferase (ALT) 27 U/L (7-40) Alkaline Phosphatase 93 U/L (46-116) Total Protein 7.9 g/dL (5.7-8.2) Albumin 4.7 g/dL (3.2-4.8) Other Laboratory Tests 12/09/24 06:03 Brief Hx & Hospital Course: 39-year-old female with a no significant past medical history with a previous history of positive CLARENCE presented to the hospital with a allergic rash , patient was eventually admitted, started on IV Solu-Medrol, Benadryl p.r.n., antihistamine. Patient did not anterior NSTEMI. I requested rheumatology consultation but they were not contracted with her insurance. , the muffler hand was nice enough to give me recommendation on curbside on the phone. He recommended patient needs to be seen as an outpatient especially with the allergy and immunology and prolonged prednisone tapering for now. This was explained with the patient detail who understand verbalized understanding and agreeable to plan. Condition at Discharge: Stable Final Diagnosis/Problems List 1. Allergic rash, need outpatient follow up with the allergy software support specialist paulina 2. Positive CLARENCE, outpatient follow up with Rheumatology who is taking her insurance. Discharge Disposition: Home SNF Discharge Will this Physician continue t: No Discharge Instruct/Medications Diet: Regular Activity: No Restrictions, As Tolerated Follow Up/Referral: Please follow up with the PCP in 1-2 weeks Follow up with Allergy software support specialist in 1-2 weeks Follow up with the Rheumatology as an outpatient as you have positive PND testing in the past to make sure no evidence of lupus Medications: Medication has been described. New Medications: Pantoprazole Sodium Sesquihydr (Protonix) 40 Mg Tab 40 MG PO DAILY, #30 TAB Prednisone (Prednisone) 20 Mg Tab 40 MG PO DAILY, #30 MG Prednisone tapering 40 mg p.o. daily for five days 30 mg daily for five days 20 mg daily for five days Continued Medications: Diphenhydramine Hcl (Benadryl Capsule) 25 Mg Cp 1 CAP PO Q8HP PRN for FOR ITCHING Prednisone (Prednisone) 20 Mg Tab 40 MG PO DAILY for 5 Days, #10 TAB 0 Refills Discontinued Medications: Famotidine (Pepcid Tablet) 20 Mg Tb 2 TAB PO DAILY, TAB Hydroxyzine HCl (Hydroxyzine Hydrochloride) 25 Mg Tab 25 MG PO Q8HP PRN for 5 Days, #15 TAB 0 Refills Scheduled Famotidine (Pepcid Tablet), 2 TAB PO DAILY, (Reported) Pantoprazole Sodium Sesquihydr (Protonix), 40 MG PO DAILY Prednisone (Prednisone), 40 MG PO DAILY Prednisone (Prednisone), 40 MG PO DAILY Scheduled PRN Diphenhydramine Hcl (Benadryl Capsule), 1 CAP PO Q8HP PRN for FOR ITCHING, (Reported) Hydroxyzine HCl (Hydroxyzine Hydrochloride), 25 MG PO Q8HP PRN Discharge Statement: "Patient was advised to return to the ER or call 911 if any headaches, dizziness, shortness of breath, chest pain, abdominal pain, bleeding, fevers, or worsening of medical condition. Patient was counseled about treatment plan, medications, possible side effects, patientverbalized understanding. All questions were answered to the best of my ability. This discharge took greater then 30 minutes in planning, reviewing documentation, counseling the patient, and discussing with other team members." ASSESSMENT ASSESSMENT Assessment 1. Allergic rash, need outpatient follow up with the allergy software support specialist paulina 2. Positive CLARENCE, outpatient follow up with Rheumatology who is taking her insurance. Date of Service: Dec 11, 2024 Billing Provider: ALEJANDRA VALLE MD Common Visit Codes: [id number] INP/OBS CARE(MOD), 06271-ZFY/OBS DISCH DAY >30min ALEJANDRA VALLE MD Dec 11, 2024 16:31
== END 2024-12-11 18:41 | disposition home or self-care (01) | DRG 607 ==
LOC: ER 20:27 → OVERFLOW 23:48 → WEST WING 12-09 01:52
PROVIDERS: ADMIT Internal Medicine; ATTEND Internal Medicine
DX: L50.0 Allergic urticaria (principal); I10 Essential (primary) hypertension; Z88.0 Allergy status to penicillin; Z88.1 Allergy status to other antibiotic agents; Z79.899 Other long term (current) drug therapy; T50.995A Adverse effect of other drugs, medicaments and biological substances, initial encounter; Y92.89 Other specified places as the place of occurrence of the external cause
CPT/HCPCS: 36415; 80048; 80053; 81001; 81025; 85025; 85652; G0378; J3490